=== PATIENT | male | born 1960 | race Asian ===

== ENCOUNTER 2024-10-08 09:46 | Outpatient (CLI) | payer OTHER | END 2024-10-08 09:47 | disposition home or self-care (01) | LOC: BICCT 09:46 | PROVIDERS: ATTEND Internal Medicine | DX: E78.00 Pure hypercholesterolemia, unspecified (principal); I25.10 Atherosclerotic heart disease of native coronary artery without angina pectoris | CPT/HCPCS: 75571 ==